=== PATIENT | male | born 1980 | race Caucasian/White ===

== ENCOUNTER 2018-01-25 11:56 | Emergency (ER) | payer OTHER ==
--- NOTE | 2018-01-25 12:40 | RAD REPORT ---
EXAM DESCRIPTION: RAD - Chest Single View - 01/25/2018 12:35 pm CLINICAL HISTORY: CHEST PAIN Chest pain. COMPARISON: No comparisons FINDINGS: Portable technique limits examination quality. The lungs are grossly clear. The heart is normal in size. No displaced fractures. IMPRESSION: No acute intrathoracic process suspected.
[2018-01-25 12:52] LABS: Absolute Lymphocytes (CBC) 1.5 K/uL (0.7-4.9); Absolute Monocytes 0.7 K/uL (0.1-1.3); Absolute Neutrophil 3.6 K/uL (1.8-8.0); Eosinophils % 1.5 % (0-4.4); Hematocrit 44.8 % (39.6-49.0); Lymphocytes % 25.2 % (15.3-44.8); MCH 32.8 pg (27.0-35.0); MCV 93.5 fL (80-100); MPV 10.8 fL (7.6-11.3); Monocytes % 11.7 % (3.3-12.3); RBC Red Blood Cell Count 4.79 M/uL (4.33-5.43)
--- NOTE | 2018-01-25 13:07 | RAD REPORT ---
EXAM DESCRIPTION: CT - CTFBWCON CLINICAL HISTORY: r facial swelling COMPARISON: <Comparisons> TECHNIQUE: Axial 2 mm thick images of the face were obtained with sagittal and coronal reconstructio n images. All CT scans are performed using dose optimization technique as appropriate and may include automated exposure control or mA/KV adjustment according to patient size. FINDINGS: No acute facial bone fracture is seen.The mandible is intact. Small hardware plate is pres ent in the right aspect of the mandible. The globes and orbital contents are grossly unremarkable.The paranasal sinuses and mastoids are clear . IMPRESSION: No acute abnormality is detected.
[2018-01-25 13:22] LABS: BUN Blood Urea Nitrogen 21 mg/dL (7-18); Bicarbonate 30 mmol/L (21-32); Glucose Level 92 mg/dL (74-106); Potassium 4.5 mmol/L (3.5-5.1); Sodium Level 143 mmol/L (136-145); Troponin (Emerg Dept Use Only) < 0.02 ng/mL (0.0-0.045)
--- NOTE | 2018-01-25 14:28 | ER ---
Nurse's Notes [facility] Name: Tay Irene Age: 37 yrs Sex: Male : 1980 Arrival Date: 01/25/2018 Time: 11:57 Bed 7 Private MD: None, None Diagnosis: Cellulitis of face Presentation: 01/25 12:00 Presenting complaint: Patient states: right sided facial swelling, right ear pain, sv upper abd pain, across upper chest wall pain started about a week ago. Transition of care: patient was not received from another setting of care. Onset of symptoms was January 18, 2018. Care prior to arrival: None. 12:00 Method Of Arrival: Ambulatory sv 12:00 Acuity: FADI 3 sv 13:08 Risk Assessment: Do you want to hurt yourself or someone else? Patient reports no em desire to harm self or others. Initial Sepsis Screen: Does the patient meet any 2 criteria? HR > 90 bpm. Does the patient have a suspected source of infection? No. Patient's initial sepsis screen is negative. Triage Assessment: 12:00 General: Appears in no apparent distress. uncomfortable, well groomed, well developed, sv Behavior is calm, cooperative, appropriate for age. Pain: Complains of pain in right temporal area, right ear, right episcopalian, right zygomatic area, right cheek, right clavicle, left clavicle, anterior aspect of right upper chest and anterior aspect of left upper chest. Neuro: Level of Consciousness is awake, alert, obeys commands, Oriented to person, place, time, situation, Moves all extremities. Full function Gait is steady. Cardiovascular: Patient's skin is warm and dry. Respiratory: Respiratory effort is even, unlabored, Respiratory pattern is regular, symmetrical. Historical: - Allergies: 12:01 No Known Allergies; sv - Home Meds: 12:01 None [Active]; sv - PMHx: 12:01 None; sv - PSHx: 12:01 jaw; Knee surgery; Tonsillectomy; sv - Immunization history:: Flu vaccine is up to date. - Social history:: Smoking status: Patient/guardian denies using tobacco. - Ebola Screening: : No symptoms or risks identified at this time. Screenin:07 Abuse screen: Denies threats or abuse. Nutritional screening: No deficits noted. em Tuberculosis screening: No symptoms or risk factors identified. Fall Risk None identified. Assessment: 12:55 General: Appears in no apparent distress. comfortable, Behavior is calm, cooperative, em Reports "pressure behind right ear, it isn't an earache, pain in my right arm and knuckles, and abdominal pain". Pain: Complains of pain in chest and anterior aspect of left upper chest and anterior aspect of right upper chest and right ear and right temporal area Pain began "for a while now". Neuro: Level of Consciousness is awake, alert, obeys commands, Oriented to person, place, time, situation, Moves all extremities. Speech is normal, Facial symmetry appears normal, Denies weakness dizziness, headache. Cardiovascular: Capillary refill < 3 seconds Patient's skin is warm and dry. Respiratory: Airway is patent Respiratory effort is even, unlabored, Respiratory pattern is regular, symmetrical, Breath sounds are clear bilaterally. GI: Abdomen is flat, Bowel sounds present X 4 quads. Patient currently denies nausea, vomiting. : No signs and/or symptoms were reported regarding the genitourinary system. Derm: Skin is intact, Skin is pink, warm \\T\\ dry. Musculoskeletal: Capillary refill < 3 seconds, Range of motion: intact in all extremities. 14:13 Reassessment: Patient appears in no apparent distress at this time. Patient and/or em family updated on plan of care and expected duration. Pain level reassessed. Patient is alert, oriented x 3, equal unlabored respirations, skin warm/dry/pink. Vital Signs: 12:01 BP 122 / 82; Pulse 102; Resp 18; Temp 98.8; Pulse Ox 99% ; Weight 99.79 kg; Height 5 sv ft. 9 in. (175.26 cm); Pain 0/10; 13:09 BP 119 / 85; Pulse 104; Resp 18; Pulse Ox 96% on R/A; Pain 0/10; em 14:14 BP 103 / 67; Pulse 78; Resp 18; Pulse Ox 97% on R/A; Pain 0/10; em 12:01 Body Mass Index 32.49 (99.79 kg, 175.26 cm) sv ED Course: 11:57 Patient arrived in ED. mr 11:57 None, None is Private Physician. mr 12:01 Triage completed. sv 12:02 Arm band placed on. sv 12:05 Vimal Alvares MD is Attending Physician. 12:16 EKG done, by alternative energy technician. reviewed by Vimal Alvares MD. 3 12:34 X-ray completed. Portable x-ray completed in exam room. Patient tolerated procedure jb2 well. 12:37 Gertrude Buckner, RN is Primary Nurse. 12:40 Initial lab(s) drawn, sent to lab. Inserted saline lock: 20 gauge in right antecubital dh3 area, using aseptic technique. Blood collected. by technical services analyst Janette. 12:45 CT completed. Patient tolerated procedure well. Patient moved to MI via wheelchair. Patient moved back from MI. 13:07 Patient has correct armband on for positive identification. quality assurance monitor body on. Pulse em ox on. NIBP on. 13:07 Patient maintains SpO2 saturation greater than 95% on room air. em 14:29 Stephanie Casey MD is Referral Physician. 14:46 No provider procedures requiring assistance completed. IV discontinued, intact, em bleeding controlled, No redness/swelling at site. Pressure dressing applied. Administered Medications: No medications were administered Outcome: 14:27 Discharge ordered by . 14:46 Discharged to home ambulatory. em 14:46 Condition: good 14:46 Discharge instructions given to patient, Instructed on discharge instructions, follow up and referral plans. medication usage, Demonstrated understanding of instructions, follow-up care, medications, Prescriptions given X 1. 14:46 Patient left the ED. em Signatures: Gertrude Buckner, RN Stephanie Parikh ch, RN RN sv Kacie Parkinson, Juarez jb2 Janette Back Emanuel Cummings, WATER MANGLE TENDER WATER MANGLE TENDER [place] [id number] Vimal Alvares MD MD Iqra Parsons 3 Corrections: (The following items were deleted from the chart) 12:02 12:00 Presenting complaint: Patient states: right sided facial swelling, right ear sv pain, across upper chest wall pain started about a week ago. sv
--- NOTE | 2018-01-25 14:28 | EDPHYS ---
Physician Documentation [facility] Name: Tay Irene Age: 37 yrs Sex: Male : 1980 Arrival Date: 01/25/2018 Time: 11:57 Bed 7 Private MD: None, None ED Physician Vimal Alvares HPI: 01/25 15:28 This 37 yrs old Male presents to ER via Ambulatory with complaints of Chest gs Pain, Facial Swelling, Ear Pain. 15:28 the patient presents with a swollen area of the right cheek. Description: The affected gs area is small, confluent, firm, nonfluctuant. Onset: The symptoms/episode began/occurred 3 day(s) ago, and became worse and became persistent. Possible cause(s): unknown. Associated signs and symptoms: Pertinent positives: ear ache. Modifying factors: the symptoms are alleviated by nothing, the symptoms are aggravated by touching. Severity of symptoms: At their worst the symptoms were moderate, in the emergency department the symptoms are unchanged. The patient has not experienced similar symptoms in the past. Historical: - Allergies: 12:01 No Known Allergies; sv - Home Meds: 12:01 None [Active]; sv - PMHx: 12:01 None; sv - PSHx: 12:01 jaw; Knee surgery; Tonsillectomy; sv - Immunization history:: Flu vaccine is up to date. - Social history:: Smoking status: Patient/guardian denies using tobacco. - Ebola Screening: : No symptoms or risks identified at this time. ROS: 15:28 Constitutional: Negative for fever, poor PO intake. gs 15:28 Cardiovascular: Positive for chest pain, upper chest intermittent brief no diaphoresis or sob. 15:28 All other systems are negative. Exam: 15:28 Eyes: Pupils equal round and reactive to light, extra-ocular motions intact. Lids and gs lashes normal. Conjunctiva and sclera are non-icteric and not injected. Cornea within normal limits. Periorbital areas with no swelling, redness, or edema. Neck: Trachea midline, no thyromegaly or masses palpated, and no cervical lymphadenopathy. Supple, full range of motion without nuchal rigidity, or vertebral point tenderness. No Meningismus. Chest/axilla: Normal chest wall appearance and motion. Nontender with no deformity. No lesions are appreciated. Cardiovascular: Regular rate and rhythm with a normal S1 and S2. No gallops, murmurs, or rubs. Normal PMI, no JVD. No pulse deficits. Respiratory: Lungs have equal breath sounds bilaterally, clear to auscultation and percussion. No rales, rhonchi or wheezes noted. No increased work of breathing, no retractions or nasal flaring. Abdomen/GI: Soft, non-tender, with normal bowel sounds. No distension or tympany. No guarding or rebound. No evidence of tenderness throughout. Back: No spinal tenderness. No costovertebral tenderness. Full range of motion. Skin: Warm, dry with normal turgor. Normal color with no rashes, no lesions, and no evidence of cellulitis. MS/ Extremity: Pulses equal, no cyanosis. Neurovascular intact. Full, normal range of motion. Neuro: Awake and alert, GCS 15, oriented to person, place, time, and situation. Cranial nerves II-XII grossly intact. Motor strength 5/5 in all extremities. Sensory grossly intact. Cerebellar exam normal. Normal gait. 15:28 Constitutional: The patient appears alert, awake. 15:28 Head/face: Noted is swelling, that is mild, of the right cheek, of the small indurated area. 15:28 ENT: Ear canal(s): are normal, TM's: are normal. 15:28 ECG was reviewed by the Attending Physician. Vital Signs: 12:01 BP 122 / 82; Pulse 102; Resp 18; Temp 98.8; Pulse Ox 99% ; Weight 99.79 kg; Height 5 sv ft. 9 in. (175.26 cm); Pain 0/10; 13:09 BP 119 / 85; Pulse 104; Resp 18; Pulse Ox 96% on R/A; Pain 0/10; em 14:14 BP 103 / 67; Pulse 78; Resp 18; Pulse Ox 97% on R/A; Pain 0/10; em 12:01 Body Mass Index 32.49 (99.79 kg, 175.26 cm) sv MDM: 12:14 Patient medically screened. 15:28 Differential diagnosis: abscess, cellulitis, cad. Data reviewed: vital signs, nurses gs notes. Counseling: I had a detailed discussion with the patient and/or guardian regarding: the historical points, exam findings, and any diagnostic results supporting the discharge/admit diagnosis, radiology results, the need for outpatient follow up. Response to treatment: the patient's symptoms have markedly improved after treatment, and as a result, I will discharge patient. 01/25 12:15 Order name: Basic Metabolic Panel 01/25 12:15 Order name: CBC with Diff 01/25 12:15 Order name: Troponin (emerg Dept Use Only) 01/25 12:56 Order name: CBC with Automated Diff; Complete Time: 14:22 EDMS 01/25 13:23 Order name: Basic Metabolic Panel; Complete Time: 14:22 EDMS 01/25 13:23 Order name: Troponin (Emerg Dept Use Only); Complete Time: 14:22 EDMS 01/25 12:06 Order name: EKG; Complete Time: 12:06 sv 01/25 12:06 Order name: EKG - Nurse/Tech; Complete Time: 13:03 sv 01/25 12:15 Order name: XRAY Chest (1 view) 01/25 12:15 Order name: Cardiac monitoring; Complete Time: 13:03 01/25 12:15 Order name: IV Saline Lock; Complete Time: 12:43 01/25 12:15 Order name: CT Facial Bones W/ Con \T\ Mpr 01/25 12:41 Order name: RAD; Complete Time: 14:22 EDMS 01/25 13:09 Order name: CT; Complete Time: 14:22 EDOH 01/25 12:15 Order name: Labs collected and sent; Complete Time: 12:43 01/25 12:15 Order name: O2 Per Protocol; Complete Time: 13:03 01/25 12:15 Order name: O2 Sat Monitoring; Complete Time: 13:03 EC:28 Rate is 91 beats/min. QRS [place] is Normal. VA interval is normal. QRS interval is gs normal. T waves are Normal. No ST changes noted. Clinical impression: Normal ECG. Interpreted by me. Administered Medications: No medications were administered Disposition: 01/25/18 14:27 Discharged to Home. Impression: Cellulitis of face. - Condition is Stable. - Discharge Instructions: Cellulitis, Adult. - Prescriptions for Keflex 500 mg Oral Capsule - take 1 capsule by ORAL route every 8 hours for 7 days; 28 capsule. - Medication Reconciliation Form, Thank You Letter, Antibiotic Education, Prescription Opioid Use form. - Follow up: Private Physician; When: 2 - 3 days; Reason: Re-evaluation by your physician. Follow up: Stephanie Casey MD; When: 2 - 3 days; Reason: Re-evaluation by your physician. Signatures: Dispatcher [employer] Stephanie Anand, DAWN RN sv Emanuel Cummings, CHIEF RADIATION THERAPIST CHIEF RADIATION THERAPIST Vimal Alvares MD MD gs Corrections: (The following items were deleted from the chart) 14:29 14:27 01/25/2018 14:27 Discharged to Home. Impression: Cellulitis of face. Condition is gs Stable. Forms are Medication Reconciliation Form, Thank You Letter, Antibiotic Education, Prescription Opioid Use. Follow up: Private Physician; When: 2 - 3 days; Reason: Re-evaluation by your physician. gs 14:46 14:29 01/25/2018 14:27 Discharged to Home. Impression: Cellulitis of face. Condition is em Stable. Discharge Instructions: Cellulitis, Adult. Prescriptions for Keflex 500 mg Oral Capsule - take 1 capsule by ORAL route every 8 hours for 7 days; 40 capsule. and Forms are Medication Reconciliation Form, Thank You Letter, Antibiotic Education, Prescription Opioid Use. Follow up: Private Physician; When: 2 - 3 days; Reason: Re-evaluation by your physician. Follow up: Stephanie Casey; When: 2 - 3 days; Reason: Re-evaluation by your physician. gs
--- NOTE | 2018-01-25 22:06 | EKG ---
Test Date: 2018-01-25 Test Time: 12:15:28 Reports Analysis Manager: MARY MEASUREMENT RESULTS: Intervals: Rate: 91 FL: 130 QRSD: 82 QT: 336 QTc: 413 [place]: P: 42 FL: 130 QRS: 40 T: 33 INTERPRETIVE STATEMENTS: Normal sinus rhythm Normal ECG No previous ECG available for comparison Electronically Signed On 01-25-18 22:05:46 PIPE INSTALLER by Matheus Osei
== END 2018-01-25 14:46 | disposition home or self-care (01) ==
LOC: ER 11:56
DX: L03.211 Cellulitis of face (principal); R07.9 Chest pain, unspecified
CPT/HCPCS: 36415; 70487; 71045; 76377; 80048; 84484; 85025; 93005; 99285; Q9967

== ENCOUNTER 2019-03-16 14:07 | Emergency (ER) | payer OTHER ==
--- NOTE | 2019-03-16 15:07 | RAD REPORT ---
EXAM DESCRIPTION: RAD - Foot Left 3 View - 03/16/2019 2:57 pm CLINICAL HISTORY: Left Foot pain FINDINGS: Mildly to moderately displaced oblique fracture mid to distal aspect of fourth proximal ph alanx. No dislocation
--- NOTE | 2019-03-16 15:08 | RAD REPORT ---
EXAM DESCRIPTION: RAD - Wrist Right 3 View - 03/16/2019 2:57 pm CLINICAL HISTORY: Right wrist pain status post injury FINDINGS: All fracture fifth metacarpal No acute fracture or dislocation If patient continues to have symptoms to suggest an occult fracture then a follow-up x-ray in 7 days would be recommended
--- NOTE | 2019-03-16 15:29 | ER ---
Nurse's Notes [facility] Name: Tay Irene Age: 38 yrs Sex: Male : 1980 Arrival Date: 03/16/2019 Time: 14:09 Bed 10 Private MD: Diagnosis: Pain in right wrist;Nondisplaced fracture of proximal phalanx of left lesser toe(s)-fourth toe;Low back pain Presentation: 03/16 14:18 Presenting complaint: Patient states: jammed right wrist while chasing dog, also hurt iw left foot on coffee table and also has right mid back pain for months. Transition of care: patient was not received from another setting of care. Onset of symptoms was February 2019. Risk Assessment: Do you want to hurt yourself or someone else? Patient reports no desire to harm self or others. Initial Sepsis Screen: Does the patient meet any 2 criteria? No. Patient's initial sepsis screen is negative. Does the patient have a suspected source of infection? No. Patient's initial sepsis screen is negative. Care prior to arrival: None. 14:18 Method Of Arrival: Ambulatory iw 14:18 Acuity: FADI 4 iw Triage Assessment: 15:00 General: Appears in no apparent distress. Behavior is calm, cooperative. iw Historical: - Allergies: 14:20 No Known Allergies; iw - Home Meds: 14:20 None [Active]; iw - PMHx: 14:20 None; iw - PSHx: 14:20 jaw; Knee surgery; Tonsillectomy; iw - Immunization history:: Adult Immunizations not up to date. - Social history:: Smoking status: Patient/guardian denies using tobacco. - Ebola Screening: : Patient negative for fever greater than or equal to 101.5 degrees Fahrenheit, and additional compatible Ebola Virus Disease symptoms Patient denies exposure to infectious person Patient denies travel to an Ebola-affected area in the 21 days before illness onset No symptoms or risks identified at this time. Screenin:40 Abuse screen: Denies threats or abuse. Denies injuries from another. Nutritional iw screening: No deficits noted. Tuberculosis screening: No symptoms or risk factors identified. Fall Risk None identified. Assessment: 15:00 General: Appears in no apparent distress. Behavior is calm, cooperative. Pain: iw Complains of pain in dorsum of left foot and right wrist and right mid back. Neuro: Level of Consciousness is awake, alert, obeys commands, Oriented to person, place, time, situation, Moves all extremities. Full function. Cardiovascular: Patient's skin is warm and dry. Respiratory: Respiratory effort is even, unlabored, Respiratory pattern is regular. Derm: Skin is intact, is healthy with good turgor. Musculoskeletal: Range of motion: intact in all extremities. Vital Signs: 14:20 BP 118 / 72; Pulse 84; Resp 16; Temp 98.3; Pulse Ox 100% on R/A; Weight 97.52 kg; iw Height 5 ft. 9 in. (175.26 cm); Pain 4/10; 14:20 Body Mass Index 31.75 (97.52 kg, 175.26 cm) iw ED Course: 14:09 Patient arrived in ED. rg4 14:19 Diego Guido PA is PHCP. cp 14:19 Tay Peralta MD is Attending Physician. cp 14:20 Triage completed. iw 14:21 Arm band placed on. iw 14:56 XRAY Foot LEFT 3 View In Process Unspecified. EDMS 14:56 XRAY Wrist RIGHT 3 view In Process Unspecified. EDMS 15:15 Patient has correct armband on for positive identification. iw 15:31 Emanuel Cummings, DAWN is Primary Nurse. em 15:44 Primary Nurse role handed off by Emanuel Cummings RN iw 15:44 Shy Lancaster, RN is Primary Nurse. iw 15:44 No provider procedures requiring assistance completed. Patient did not have IV access iw during this emergency room visit. Administered Medications: No medications were administered Outcome: 15:28 Discharge ordered by MD. cp 15:44 Discharged to home ambulatory. iw 15:44 Condition: good 15:44 Discharge instructions given to patient, Instructed on discharge instructions, follow up and referral plans. Demonstrated understanding of instructions, follow-up care. 15:45 Patient left the ED. iw Signatures: Dispatcher [employer] Emanuel Weiss RN RN Shy Etienne RN RN iw Diego Guido PA PA cp Garcia, Rubi rg4
--- NOTE | 2019-03-16 15:29 | EDPHYS ---
Physician Documentation [facility] Name: Tay Irene Age: 38 yrs Sex: Male : 1980 Arrival Date: 03/16/2019 Time: 14:09 Bed 10 Private MD: ED Physician Tay Peralta HPI: 03/16 14:30 This 38 yrs old Male presents to ER via Ambulatory with complaints of Fall cp Injury. 14:30 The patient presents with pain that is acute, with no known mechanism of injury. cp 14:30 The symptoms are located in the right mid back and right low back. The pain does not cp radiate. The problem was sustained from unknown cause. Onset: The symptoms/episode began/occurred couple weeks ago. The patient presents with an injury, pain, that is acute, tenderness. The complaints affect the left fourth toe. Context: The problem was sustained at home, resulted from stubbing toe on furniture. the patient can fully bear weight, the patient is able to ambulate, with mild difficulty. Onset: The symptoms/episode began/occurred couple weeks ago. The patient or guardian reports pain, tenderness. The complaints affect the right wrist diffusely. Context: resulted from an unknown cause. Onset: The symptoms/episode began/occurred couple weeks ago. Associated signs and symptoms: Pertinent negatives: cyanosis distally, decreased sensation distally. Historical: - Allergies: 14:20 No Known Allergies; iw - Home Meds: 14:20 None [Active]; iw - PMHx: 14:20 None; iw - PSHx: 14:20 jaw; Knee surgery; Tonsillectomy; iw - Immunization history:: Adult Immunizations not up to date. - Social history:: Smoking status: Patient/guardian denies using tobacco. - Ebola Screening: : Patient negative for fever greater than or equal to 101.5 degrees Fahrenheit, and additional compatible Ebola Virus Disease symptoms Patient denies exposure to infectious person Patient denies travel to an Ebola-affected area in the 21 days before illness onset No symptoms or risks identified at this time. ROS: 14:35 Constitutional: Negative for body aches, chills, fever, poor PO intake. cp 14:35 Cardiovascular: Negative for chest pain, edema, palpitations. cp 14:35 Respiratory: Negative for cough, shortness of breath, wheezing. 14:35 Abdomen/GI: Negative for abdominal pain, nausea, vomiting, and diarrhea. 14:35 Back: Positive for pain at rest, pain with movement, of the right mid back. 14:35 : Negative for urinary symptoms, testicular pain 14:35 MS/extremity: Positive for pain, tenderness, of the left foot and right wrist. 14:35 Skin: Negative for rash. 14:35 Neuro: Negative for altered mental status, headache, weakness. 14:35 All other systems are negative. Exam: 14:40 Constitutional: The patient appears in no acute distress, alert, awake, non-toxic, well cp developed, well nourished. 14:40 Head/Face: Normocephalic, atraumatic. cp 14:40 Eyes: Periorbital structures: appear normal, Conjunctiva: normal, no exudate, no injection, Lids and lashes: appear normal, bilaterally. 14:40 ENT: External ear(s): are unremarkable, Nose: is normal, Mouth: Lips: moist, Oral mucosa: moist. 14:40 Chest/axilla: Inspection: normal. 14:40 Cardiovascular: Rate: normal. 14:40 Respiratory: the patient does not display signs of respiratory distress, Respirations: normal. 14:40 Back: pain, that is mild, of the right mid back, ROM is normal. 14:40 Musculoskeletal/extremity: Extremities: grossly normal except: noted in the proximal left fourth toe: pain, tenderness, There is no evidence of deformity, Joints: All joints are normal except the right wrist displays painful range of motion, tenderness. 14:40 Skin: cellulitis, is not appreciated, no rash present. Vital Signs: 14:20 BP 118 / 72; Pulse 84; Resp 16; Temp 98.3; Pulse Ox 100% on R/A; Weight 97.52 kg; iw Height 5 ft. 9 in. (175.26 cm); Pain 4/10; 14:20 Body Mass Index 31.75 (97.52 kg, 175.26 cm) iw Procedures: 16:00 Splinting: Splint applied to right wrist using velcro wrist brace. applied by nurse. cp Examined by me, post splint application: neurovascular intact, Patient tolerated well. MDM: 14:22 Patient medically screened. cp 15:28 Data reviewed: vital signs, nurses notes, radiologic studies, plain films. cp 15:28 Test interpretation: by ED physician or midlevel provider: plain radiologic studies, cp xrays of right wrist negative for fracture, xrays of left foot show nondisplaced fracture middle phalanx fourth toe. Counseling: I had a detailed discussion with the patient and/or guardian regarding: the historical points, exam findings, and any diagnostic results supporting the discharge/admit diagnosis, radiology results, the need for outpatient follow up, a family practitioner, to return to the emergency department if symptoms worsen or persist or if there are any questions or concerns that arise at home. 03/16 14:27 Order name: XRAY Foot LEFT 3 View cp 03/16 14:27 Order name: XRAY Wrist RIGHT 3 view cp 03/16 15:22 Order name: Wrist Splint: right thumb spica; Complete Time: 15:44 cp Administered Medications: No medications were administered Disposition: 15:47 Chart complete. cp 15:48 Co-signature as Attending Physician, Tay Peralta MD I agree with the assessment and kdr plan of care. Disposition: 03/16/19 15:28 Discharged to Home. Impression: Pain in right wrist, Nondisplaced fracture of proximal phalanx of left lesser toe(s) - fourth toe, Low back pain. - Condition is Stable. - Discharge Instructions: Back Pain, Adult, Toe Fracture, Wrist Pain, Heat Therapy, Back Exercises. - Prescriptions for Ibuprofen 800 mg Oral Tablet - take 1 tablet by ORAL route every 8 hours As needed take with food; 30 tablet. Cyclobenzaprine 10 mg Oral Tablet - take 1 tablet by ORAL route every 8 hours As needed no driving while taking medication; 20 tablet. - Medication Reconciliation Form, Thank You Letter, Antibiotic Education, Prescription Opioid Use form. - Follow up: Private Physician; When: 1 week; Reason: Recheck today's complaints. - Problem is new. - Symptoms have improved. Signatures: Dispatcher [employer] EDTay Monahan MD MD kdr Shy Lancaster RN RN iw Diego Guido PA PA cp Corrections: (The following items were deleted from the chart) 15:45 15:28 03/16/2019 15:28 Discharged to Home. Impression: Pain in right wrist; iw Nondisplaced fracture of proximal phalanx of left lesser toe(s) - fourth toe; Low back pain. Condition is Stable. Forms are Medication Reconciliation Form, Thank You Letter, Antibiotic Education, Prescription Opioid Use. Follow up: Private Physician; When: 1 week; Reason: Recheck today's complaints. Problem is new. Symptoms have improved. cp
[2019-03-16 15:56] VITALS: BP 118/72; TEMP 98.3; O2SAT 100
== END 2019-03-16 15:45 | disposition home or self-care (01) ==
LOC: ER 14:07
DX: S92.515A Nondisplaced fracture of proximal phalanx of left lesser toe(s), initial encounter for closed fracture (principal); M54.5 Low back pain; W22.03XA Walked into furniture, initial encounter; Y93.01 Activity, walking, marching and hiking; Y92.009 Unspecified place in unspecified non-institutional (private) residence as the place of occurrence of the external cause
CPT/HCPCS: 99283